=== PATIENT | male | born 2005 | race Caucasian/White ===

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

== ENCOUNTER 2025-01-05 03:14 | Emergency (ER) | payer OTHER, SELFPAY ==
--- NOTE | ~2025-01-05 | XR_ITS ---
CLINICAL HISTORY: trauma 1 view chest x-ray Comparison: None provided Findings: The lungs are clear. Normal size heart. No acute fracture. IMPRESSION: No acute cardiopulmonary abnormality. This document has been electronically signed by: Tr Perkins on 01/05/2025 06:31:12
[2025-01-05 03:22] VITALS: BP 125/72; PULSE 82; RESP 18; TEMP 36.7; O2SAT 98; BMI 17.7
--- OUTSIDE RECORDS SUMMARY | 2025-01-05 04:49 | XMS_ITS | Clinical Summary ---
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 Role Phone Unavailable Primary Care Provider Unavailabl e Immunizations Immunization Administration Dates Next Due Pfizer Covid-19 Vaccine 12+ 04/17/2021, Pfizer Covid-19 Vaccine 12+ Bivalent 07/09/2022 Social History Tobacco Use Types Packs/Day Years Used Date Smoking Tobacco: Never Assessed Sex and Gender Information Value Date Recorded Sex Assigned at Male 07/09/2022 3:33 PM EDT Legal Sex Male 3:31 PM EDT Gender Identity Male 07/09/2022 3:33 PM EDT Sexual Orientation Straight 07/09/2022 3: 33 PM EDT Plan of Treatment Health Maintenance Due Date Last Done Comments Chlamydia and Gonorrhea Screening 2003 Depression Screening 2003 HIV Screening 2003 SDOH Screening 2003 Disability Screening 2003 Alcohol/Substance Use Screening 2015 Tobacco Screening 2015 Family Planning (PISQ) 12/29/2018 HPV Vaccines (1 - Male 3-dos e series) 12/29/2018 Meningococcal B Vaccine (1 o f 2 - Standard) 2019 Hepatitis C Screening 12/29/2021 DTaP/Tdap/Td Vaccines (1 - Tdap) 12/29/2022 Hepatitis B Vaccines (1 of 3 - 19+ 3-dose series) 12/29/2022 COVID-19 Vaccine (4 - 2024-2 6 season) 2024 07/09/2022, 04/17/2021, 03/27/2021 Influenza Vaccine (#1) 2024 Zoster Vaccines (1 of 2) 12/29/2053 RSV Patients and Patients Aged 60 years or older (1 - 1-dose 75+ series) 12/29/2078 HIB Vaccines Aged Out No longer eligi ble based on patient's age to complete this topic Hepatitis A Vaccines Aged Out No long er eligible based on patient's age to complete this topic IPV Vaccines Aged Out No longer eligi ble based on patient's age to complete this topic Meningococcal Vaccine Aged Out No micki gino eligible based on patient's age to complete this topic Pneumococcal Vaccine: Pediatrics (0 to 5 Years) and At-Risk Patients (6 to 49) Years Aged Out No longer eligible b ased on patient's age to complete this topic RSV under 20 months Aged Out No longe r eligible based on patient's age to complete this topic Rotavirus Vaccines Aged Out No longer eligible based on patient's age to complete this topic [place] [address] [place] [address]
[2025-01-05 05:10] LABS: COVID-19 Test Negative (Negative); IDNOW Serial# 58CA691E
--- NOTE | 2025-01-05 05:29 | ED_ITS ---
HPI - General Adult General Chief complaint: General Medical Stated complaint: fell landed on back Time Seen by Provider: 01/05/25 04:19 Source: patient Limitations: no limitations History of Present Illness ED Provider: Adrienne Chino PA-C HPI narrative: 19-year-old male presents with mid back pain. Patient states he was playing basketball, he subsequently fell on his back. He did not strike his head, there was no loss consciousness. Patient states he woke today with chills and nausea. Denies shortness of breath, chest pain, known cough or cold symptoms, sick contacts with similar symptoms, objective fever. No abdominal pain. Related Data Previous Rx's ?Medication ?Instructions ?Recorded cephalexin 250 mg capsule (Keflex) 250 mg PO BID #14 c aps 04/21/20 ketorolac 10 mg tablet 10 mg PO Q6H PRN pain #20 ta bs 01/05/25 Allergies Allergy/AdvReac Type Severity Reaction Status Date / Time No Known Allergies Allergy Verified 01/05/25 03:26 Review of Systems Review of Systems: Yes all other systems are reviewed and are negative Constitutional: Constitutional: Reports chills, Denies fatigue and Denies fever(s) Cardiovascular: Cardiovascular: Denies chest pain and Denies dyspnea Respiratory: Respiratory: Denies dyspnea Gastrointestinal: Gastrointestinal: Denies abdominal pain, Reports nausea and Denies vomiting Musculoskeletal: Musculoskeletal: Reports back pain Endocrine: Endocrine: Denies fatigue PMFSH Past Medical History Attestation statement: The following information was validated with the patient. Medical History No known health problems Social History Social History Alcohol intake: never Smoked in Last 30 Days: No Use of substances other than those prescribed or required for medical reasons: No Advance Directives: No Physical Exam ED Vital Signs: Vital Signs - 24 hr 01/05/25 03:22 Temperature 98.1 F Pulse Rate 82 Respiratory Rate 18 Blood Pressure 125/72 Pulse Oximetry 98 Oxygen Delivery Method Room Air BMI result Body Mass Index 17.7 Const Other: Alert well-appearing Orientation/consciousness: patient oriented x3 Resp Effort & Inspection: normal respiratory effort Cardio Other: Normal peripheral perfusion Back/Spine/Pelvis Other: No sign of back trauma Skin Other: Warm dry no rash Neuro General: patient oriented x3, gait normal and no focal motor deficits Psych Other: Cooperative Medical Decision Making Medical Decision Making MDM Narrative: 19-year-old male presents with mid back pain. Patient states he was playing basketball, he subsequently fell on his back. He did not strike his head, there was no loss consciousness. Patient states he woke today with chills and nausea. Denies shortness of breath, chest pain, known cough or cold symptoms, sick contacts with similar symptoms, objective fever. No abdominal pain. No chronic issues History: Per patient I have considered the following differential diagnoses: Rib fracture, contusion, pneumothorax, viral syndrome, bronchitis, pneumonia Plan: In regard to the fall, I have low suspicion for fracture, he is well- appearing, no evidence of trauma on exam we will obtain a chest x-ray. It sounds as if he may be developing viral syndrome, he has no precise symptoms other than subjective chills and some nausea. We will add on a COVID swab. I have independently reviewed the following tests: Labs: COVID negative Chest x-ray: No fracture no pneumonia no pleural effusion no pneumothorax Differential Diagnosis Differential Diagnoses: The differential diagnosis associated with the presentation includes See medical decision-making Admission/Observation Consideration of admission/observation: Escalation of care including admission/observation considered Not applicable Lab Data MDM Lab Attestation statement: I reviewed the patient's lab results. Labs: Lab Results 01/05/25 Range/Units 04:48 COVID-19 (ALISIA) Negative (Negative) COVID-19 Clin Com See Note Independent Interpretation I performed an independent interpretation of an: Plain X-Ray Interpretation: See medical decision-making Discharge Plan Discharge Clinical Impression: Strain of thoracic back region Patient Disposition: Home, Self-Care Instructions: Thoracic Back Strain (ED) Additional Instructions: You were tested for COVID, the viral panel was negative. The chest x-ray was normal, you did not sustain a rib fracture. You are being treated for back strain. See home care instructions. Use the ketorolac as needed for pain this is an anti-inflammatory take it with food. Follow up with your primary care provider as needed. Prescriptions: New ketorolac 10 mg tablet 10 mg PO Q6H PRN (Reason: pain) Qty: 20 0RF Rx Instructions: maximum total duration of 5 days from all oral, intranasal, or parenteral formulations. The patient received an intramuscular dose of Toradol here in the emergency room No Action cephalexin [Keflex] 250 mg capsule 250 mg PO BID Qty: 14 0RF Stand Alone Forms: Work/School Release Print Language: Polish
[2025-01-05 06:00] VITALS: BP 119/78; PULSE 68; RESP 15; TEMP 36.7; O2SAT 100
[2025-01-05 07:15] VITALS: BP 119/78; PULSE 68; RESP 15; TEMP 36.7; O2SAT 100
== END 2025-01-05 07:16 | disposition home or self-care (01) ==
PROVIDERS: Physician Assistant Medical; Emergency Provider Student in an Organized Health Care Education/Training Program
DX: S29.012A Strain of muscle and tendon of back wall of thorax, initial encounter (principal); R11.0 Nausea; M54.6 Pain in thoracic spine; R07.89 Other chest pain; X58.XXXA Exposure to other specified factors, initial encounter; Y93.9 Activity, unspecified; Y92.9 Unspecified place or not applicable; Y99.8 Other external cause status; Z11.52 Encounter for screening for COVID-19
CPT/HCPCS: 71045; 87635; 96372; 99284; J1885

== ENCOUNTER → 2025-01-05 04:34 | Outpatient (BNV) | payer OTHER, SELFPAY | PROVIDERS: Emergency Provider Student in an Organized Health Care Education/Training Program; Visit Provider Radiology Vascular & Interventional Radiology | DX: Z04.3 Encounter for examination and observation following other accident (principal); W19.XXXA Unspecified fall, initial encounter | CPT/HCPCS: 71045 ==

== ENCOUNTER 2025-01-16 19:20 | Emergency (ER) | payer OTHER, SELFPAY ==
--- NOTE | ~2025-01-16 | XR_ITS ---
CLINICAL HISTORY: CP 2 view chest x-ray Comparison: None provided Findings: No consolidation or effusion. Heart size is normal. No acute fracture. IMPRESSION: 1. No acute findings. This document has been electronically signed by: Demian Moreno MD on 01/16/2025 20:23:03
--- NOTE | 2025-01-16 19:22 | ECG_ITS ---
Test Reason : ST-E Blood Pressure : */* mmHG Vent. Rate : 73 BPM Atrial Rate : 73 BPM P-R Int : 124 ms QRS Dur : 92 ms QT Int : 340 ms P-R-T Axes : 64 80 69 degrees QTcB Int : 374 ms Normal sinus rhythm Normal ECG No previous ECGs available Referred By: Generic ED Physician Electronically Signed By: JERILYN PAPPSA
[2025-01-16 19:32] VITALS: BP 139/80; PULSE 82; RESP 15; TEMP 36.7; O2SAT 98; BMI 18.8
--- NOTE | 2025-01-16 19:34 | ED_ITS ---
HPI - General Adult General Chief complaint: General Medical Stated complaint: sent fr [facility] inflammation around the heart Time Seen by Provider: 01/16/25 20:19 History of Present Illness ED Provider: Tom Oviedo MD HPI narrative: This is a 19-year-old healthy male sent for evaluation from urgent Care. Urgent care provider concerned about the patient's chest pain and EKG findings. Patient reports a fall on December 26 was seen in the emergency department here for back pain has been taking PRN muscle relaxants. Left-sided chest pain for about a week was reported to urgent care the patient was sent here Related Data Previous Rx's ?Medication ?Instructions ?Recorded cephalexin 250 mg capsule (Keflex) 250 mg PO BID #14 c aps 04/21/20 ketorolac 10 mg tablet 10 mg PO Q6H PRN pain #20 ta bs 01/05/25 Allergies Allergy/AdvReac Type Severity Reaction Status Date / Time No Known Allergies Allergy Verified 01/16/25 19:36 [facility] Past Medical History Medical History No known health problems Social History Social History Alcohol intake: never Advance Directives: No Advance Directives Information Provided: No Do you have a plan to hurt others: No Plan Physical Exam ED Exam Exam: EXAM: Gen: Alert, awake, well appearing, well hydrated. Head: Atraumatic Eyes: Anicteric, Normal conjunctiva. ENT: Moist mucosa, no pallor. ? Neck: Supple. Skin: ?No observable rash or bruising on exposed or examined skin Respiratory: Breathing comfortably, No distress.Clear to auscultation bilaterally, symmetric chest expansion, No wheeze, rales, ronchi. Cardiovascular: Regular rate and rhythm. No murmurs or rub. Well perfused periphery, warm extremities. No edema. ? Abdominal: No focal tenderness. Soft, no objective distension. No palpable masses or obvious organomegaly. ?No guarding, no rebound tenderness or other peritoneal findings. : No flank tenderness. Neuro: Alert. Gross movement of all extremities intact. ? Psych: Calm. Cooperative. MSK: No grossly visible deformity. Vital signs: See flowsheet Vital Signs: Vital Signs - 24 hr 01/16/25 19:32 01/16/25 20:00 09/30/25 21:30 Temperature 98.1 F 98.7 F Pulse Rate 82 77 77 Respiratory Rate 15 12 12 Blood Pressure 139/80 127/75 127/75 Pulse Oximetry 98 100 100 Oxygen Delivery Method Room Air Room Air Room Air BMI result Body Mass Index 18.8 Course Course Course Narrative: This is an RME: Additional HPI, ROS, PE not included below will be deferred to primary provider. RME assessment and note performed by: Lynda Sebastian PA-C This is a 89-male, with no known medical problems, who presents to the ER with complaints of left sided chest discomfort for the last 3 days. Patient was seen at urgent care this afternoon and was concerned due to ST- elevation in V3, V4, V5. Patient has no chest pain at this time. Patient was seen here on the after a fall during basketball. He states that over the last 3 days he has had more discomfort. Plan: EKG, chest x-ray, labs, further ER evaluation needed. Procedures Procedure Narrative Procedure Narrative: EMERGENCY ULTRASOUND INTERPRETATION-Limited Echocardiography [This study was ordered, performed, and interpreted by myself. The study reveals: Impression: NORMAL LV FUNCTION, NO RV DYSFUNCTION, NO PERICARDIAL EFFUSION] [Emergent Cardiac for Indication: Views Used: PLAX, PSSA, A4, SX, IVC Pericardial Effusion/Tamponade Findings: NONE RV Dilation (> LV diam in 4ch apical): NONE Global LV Fxn: NORMAL IVC Dilation and Resp Variation: NORMAL Performed by: MD Ivelisse Images were stored CPT:04403] Medical Decision Making Medical Decision Making MDM Narrative: Medical Decision Makin-year-old male with persistent left anterior chest pain since a fall which was mainly from standing height onto concrete on the low back. He does not currently complain of back pain or any focal neurologic symptoms. There was no pleuritic nature nor has he dyspneic on exertion. He has been able to perform all of his ADLs. Physical exam of the she of the chest does not reveal any crepitus, ecchymosis, chest wall instability. He is taking full deep inspirations and has clear lungs normal heart sounds. Limited point of care echo without any gross abnormality see report above. Unclear etiology of the patients pain at this time I am reassured given his age , reassuring exam/workup Preliminary Favored Differential Diagnosis: chest wall contusion, chest or pectoral strain, pneumothorax, rib fractureamong additional considered etiologies Testing Interpreted Independently: ? subtle ST elevation without IA depression sinus rhythm bradycardic. Most suggestive of benign early repolarization with concave upward ST elevation. no st depressions Radiology or Lab testing Results Reviewed: ?See below for details Consults: ?See below for details Independent Historians/External Chart Reviews: ?See below for details Social Determinants of Health Impacting MDM/Planning: ?See below for details Lab Data 01/16/25 19:51 01/16/25 19:51 Labs: Lab Results 01/16/25 Range/Units 19:51 WBC 4.8 (4.8-10.8) X10*3/uL RBC 5.16 (4.60-5.80) X10*6/uL Hgb 15.9 (14.0-18.0) g/dl Hct 43.7 (42.0-52.0) % MCV 84.7 (80.0-98.0) fL MCH 30.8 (27.0-33.0) pg MCHC 36.4 H (31.0-36.0) g/dl RDW 12.0 (11.0-16.0) % Plt Count 190 (160-400) X10*3/uL MPV 9.3 L (9.4-12.4) fL Immature Gran % (Auto) 0.2 (0.0-0.4) % Neut % (Auto) 63.0 (45-73) % Lymph % (Auto) 24.0 (20-40) % Stoddard % (Auto) 9.9 (2-11) % Eos % (Auto) 2.5 (0-4) % Baso % (Auto) 0.4 (0-2) % Lymph # (Auto) 1.2 (1.2-4.9) X10*3/uL Stoddard # (Auto) 0.5 (0.1-1.2) X10*3/uL Eos # (Auto) 0.1 (0.0-0.4) X10*3/uL Baso # (Auto) 0.0 (0.0-0.2) X10*3/uL Abs Immat Gran (auto) 0.01 (0.00-0.03) X10*3/uL Absolute Neuts (auto) 3.0 (2.0-8.3) x10*3/uL Absolute Nucleated RBC 0.000 (0.0-0.012) X10*3/uL Nucleated RBC % (auto) 0.0 (0.0-0.2) /100WBC ESR 3 (0-15) MM/HR Sodium 141 (135-145) mmol/L Potassium 4.0 (3.3-5.1) mmol/L Chloride 105 (96-108) mmol/L Carbon Dioxide 27 (22-29) mmol/L Anion Gap 13 (12-20) BUN 10 (9-16) mg/dL Creatinine 0.85 (0.5-1.4) mg/dL Estim Creat Clear Calc 112.0 Estimated GFR > 60 Random Glucose 97 (60-115) mg/dL Calcium 9.8 (8.4-10.2) mg/dL Magnesium 2.0 (1.6-2.6) mg/dL Total Bilirubin 0.7 (0.0-1.0) mg/dL Direct Bilirubin 0.3 (0.0-0.5) mg/dL AST 20 (5-37) U/L ALT 12 (0-40) U/L Alkaline Phosphatase 92 (39-117) U/L Troponin I High Sens < 2.7 (<3.5-35.0) ng/L C-Reactive Protein < 0.10 (< or = 0.50) mg/dL Total Protein 7.8 (6.5-8.0) g/dL Albumin 5.1 H (3.5-5.0) g/dL Discharge Plan Discharge Clinical Impression: Chest pain Patient Disposition: Home, Self-Care Instructions: Chest Pain (DC) Additional Instructions: _ DISCHARGE DIAGNOSES: Chest pain unclear cause reassuring emergency department workup HISTORY OF PRESENTATION: ?Chest pain EMERGENCY DEPARTMENT COURSE,TESTS, TREATMENTS: While in the ED today you had an limited echocardiogram of your heart which has ruled out any major structural abnormalities or fluid around the heart. You had basic blood work chest x-ray and an EKG we are reassured by all of these DISCHARGE MEDICATIONS: ?[We have made no changes to your regular medication regimen] FOLLOW-UP: ?Call your primary or general physician soon as possible to discuss your symptoms, your ED visit and to discuss follow up plans Call your primary doctor for follow up INSTRUCTIONS ?& RETURN PRECAUTIONS: If any symptoms change first call your primary physician, if it is after-hours your primary doctors office should have a provider pharmacy salesperson you can speak with. If the symptoms are severe or very concerning to you then call 911 or return to the ED. Tom Oviedo MD Emergency Physician [facility] Prescriptions: No Action cephalexin [Keflex] 250 mg capsule 250 mg PO BID Qty: 14 0RF ketorolac 10 mg tablet 10 mg PO Q6H PRN (Reason: pain) Qty: 20 0RF Rx Instructions: maximum total duration of 5 days from all oral, intranasal, or parenteral formulations. The patient received an intramuscular dose of Toradol here in the emergency room Interventions: ED Discharge Assessment Last Done: 01/16/25 21:30 Discharge Date/Time: 01/16/25 21:33 Print Language: Palestinian
[2025-01-16 19:55] LABS: MANUAL DIFF FLAG NO
[2025-01-16 19:59] LABS: Hematocrit 43.7 % (42.0-52.0); Hemoglobin 15.9 g/dl (14.0-18.0); Imm Gran Abs Auto 0.01 X10*3/uL (0.00-0.03); Imm Gran Pct Auto 0.2 % (0.0-0.4); Lymphocytes Absolute Auto 1.2 X10*3/uL (1.2-4.9); Mean Corpuscular HGB Conc 36.4 g/dl (31.0-36.0); Mean Corpuscular Hemoglobin 30.8 pg (27.0-33.0); Mean Corpuscular Volume 84.7 fL (80.0-98.0); NRBC Abs Auto 0.000 X10*3/uL (0.0-0.012); NRBC Pct Auto 0.0 /100WBC (0.0-0.2); Platelet Count 190 X10*3/uL (160-400); Red Blood Count 5.16 X10*6/uL (4.60-5.80); White Blood Count 4.8 X10*3/uL (4.8-10.8)
[2025-01-16 20:00] VITALS: BP 127/75; PULSE 77; RESP 12; O2SAT 100
--- OUTSIDE RECORDS SUMMARY | 2025-01-16 20:07 | XMS_ITS | Clinical Summary ---
Author Organization [employer] Address [address] [place] [address] Care Team Providers Care Safety And Skill Based Pay Manager Name Role Phone Unavailable Primary Care Provider [...] patient's age to complete this topic [place] [address] [place] [id number]
--- NOTE | 2025-01-16 20:09 | PC.NURSE ---
PT placed on secured entrance monitor. VSS stable. Awaiting lab results
[2025-01-16 20:10] LABS: Alanine Aminotransferase 12 U/L (0-40); Albumin Level 5.1 g/dL (3.5-5.0); Alkaline Phosphatase 92 U/L (39-117); Anion Gap 13 (12-20); Aspartate Amino Transferase 20 U/L (5-37); Blood Urea Nitrogen 10 mg/dL (9-16); Calcium 9.8 mg/dL (8.4-10.2); Carbon Dioxide 27 mmol/L (22-29); Chloride 105 mmol/L (96-108); Creatinine Clr Calc Pharmacy 112.0; Estimated Glomerular Filt Rate > 60; Magnesium 2.0 mg/dL (1.6-2.6); Potassium 4.0 mmol/L (3.3-5.1); Sodium 141 mmol/L (135-145); Total Protein 7.8 g/dL (6.5-8.0)
[2025-01-16 20:18] LABS: Troponin-I High Sensitivity < 2.7 ng/L (<3.5-35.0)
[2025-01-16 21:30] VITALS: BP 127/75; PULSE 77; RESP 12; TEMP 37.1; O2SAT 100
== END 2025-01-16 21:33 | disposition home or self-care (01) ==
PROVIDERS: Physician Assistant Medical; Emergency Provider Emergency Medicine; PCP Pediatrics
DX: R07.9 Chest pain, unspecified (principal); Z91.81 History of falling
CPT/HCPCS: 36415; 71046; 80048; 80076; 83735; 84484; 85025; 85652; 86140; 93005; 99283

== ENCOUNTER → 2025-01-16 19:22 | Outpatient (BNV) | payer OTHER, SELFPAY | PROVIDERS: Emergency Provider Emergency Medicine; PCP Pediatrics; Visit Provider Internal Medicine | DX: R07.9 Chest pain, unspecified (principal) | CPT/HCPCS: 93010 ==

== ENCOUNTER → 2025-01-16 19:36 | Outpatient (BNV) | payer OTHER, SELFPAY | PROVIDERS: Emergency Provider Emergency Medicine; PCP Pediatrics; Visit Provider Radiology Diagnostic Radiology | DX: R07.89 Other chest pain (principal) | CPT/HCPCS: 71046 ==